=== PATIENT | female | born 1990 | race Caucasian/White ===

== ENCOUNTER 2023-09-20 22:57 | Emergency (ER) | payer BC, SELFPAY ==
[2023-09-20 22:59] VITALS: BP 134/91
[2023-09-20 23:06] VITALS: BMI 27.5
--- NOTE | 2023-09-20 23:15 | ED.GENMED ---
History of Present Illness
General
Chief Complaint: Headache
Source: patient
Exam Limitations: none
Time Seen by Provider: 09/20/23 23:04
Travel History
Have you had any contact with someone who has COVID-19?: No
Do you have any symptoms of coronavirus? Fever > 100 degrees, chills, cough, shortness of breath, sore throat, loss of taste or smell, muscle aches, or headache?: No
History of Present Illness
History of Present Illness:
This is a 33 year old female that comes in with c/o headache. States that she started with a headache this morning and it continued to get worse when she was at work. States that she left work as she was nauseated and diarrhea. States that her
headache is mostly across her forehead and also all over. States that there is also a shooting pain sometimes. States that this is different then her Headaches in the past, this is worse. States that she normally can take Excedrin and lay down and
it goes away. States that she feels like the room is spinning, has had nausea, vomiting and diarrhea and that light and sound bothers her. Denies any fever, chills, chest pain, SOB, abd pain, urinary burning.
Past History
Past History
ED Past Medical History: Asthma and Other (Headaches, Anemia, )
ED Past Surgical History: None
Social History
Tobacco: Non-smoker
Alcohol: Occasional
Personal:
Living: with family
Review of Systems
Review of Systems
All Other Systems: ROS reviewed and negative except as documented in HPI and ROS
Constitutional: Reports no symptoms; Denies fever or chills
EENT: Reports no symptoms
Respiratory: Reports no symptoms; Denies cough or trouble breathing
Cardiac: Reports no symptoms; Denies chest pain
ABD/GI: Reports nausea, vomiting and diarrhea; Denies abdominal pain
: Reports no symptoms; Denies dysuria, frequency or urgency
Musculoskeletal: Reports no symptoms
Skin: Reports no symptoms
Neurological: Reports dizzy and headache
Psychiatric: Reports no symptoms
Phy Exam
General Physical Exam
General Presentation: mild distress
General age: appears stated age
General Skin: warm and dry
General Habitus: normal
General Mental: alert
General Hydration: appears well hydrated
ENT Exam
ENT Exam: TM's normal, pharynx normal and neck supple
Eye Exam
Eye Exam: EOMI
Cardiovascular Exam
Cardiovascular Exam: regular rate/rhythm, no edema, no murmur and normal peripheral pulses
Pulmonary Exam
Pulmonary Exam: lungs clear, no respiratory distress, no rales, chest non tender, no crackles, no rhonchi, no wheezing and no cough
Gastrointestinal Exam
Gastrointestinal Exam: non tender, soft, no organomegaly, no pulsatile mass, non distended and other (Hypoactive bowel sounds)
Musculoskeletal Exam
Musculoskeletal Exam: full ROM and no edema
Skin Exam
Skin Exam: normal color, warm/dry, no rash and no petechia
Psychiatric Exam
Psychiatric Exam: normal mood/affect
Course
Orders/Labs/Results
Orders:
Orders
09/20/23 23:14
0.9% Sodium Chloride 1000 ml [Nss] 1,000 ml IV BOLUS
09/20/23 23:15
Test Result ONCE
09/20/23 23:23
Complete Blood Count/With Diff Urgent
Comprehensive Metabolic Panel Urgent
HCG, Serum Qualitative Screen Urgent
09/20/23 23:53
Dexamethasone Sod Phosphate [Decadron] 20 mg IV NOW STA
Diphenhydramine [Benadryl] 25 mg IV NOW STA
Ketorolac [Toradol] 30 mg IV NOW STA
Prochlorperazine [Compazine] 5 mg IV NOW STA
09/21/23 00:02
Prochlorperazine [Compazine] 10 mg .ROUTE .STK-MED ONE
09/21/23 01:00
CT Head W/o Iv Contrast Urgent
Reason For Exam: HEADACHE, DIZZINESS
Abnormal Lab Results
09/20/23
23:23
Hct 36.0 L %
(37.0-47.0)
MPV 10.6 H fL
(7.4-10.4)
Absolute Lymphs (auto) 0.5 L 10^3/uL
(1.2-3.4)
Neutrophils % 82.6 H %
(42.2-75.2)
Lymphocytes % 8.9 L %
(20.5-51.1)
Sodium 131 L mmol/L
(135-145)
Carbon Dioxide 21 L mmol/L
(22-30)
Glucose 119 H mg/dl
(70-99)
09/20/23 23:23
09/20/23 23:23
Sodium slightly low, glucose nonfasting, HCG negative.
Vital Signs
Initial and Last Documented VS:
Initial Vital Signs
Temp Pulse Resp BP Pulse Ox
98.1 F 99 18 134/91 100
09/20/23 22:59 09/20/23 22:59 09/20/23 22:59 09/20/23 22:59 09/20/23 22:59
Last Documented Vital Signs
Temp Pulse Resp BP Pulse Ox
98.1 F 81 20 116/84 100
09/20/23 22:59 09/21/23 00:52 09/21/23 00:52 09/21/23 00:52 09/21/23 00:52
MDM/Problems Addressed
Differential Diagnosis Includes:
Headache,
MDM/Problems Addressed:
This is a 33 year old female that comes in with c/o headache. States that this is worse then her normal headache pain and started this morning. States that she has nausea, vomiting and diarrhea. States that she felt like the room was spinning.
Will get labs, Give IV fluids and medicated after test back.
Back into see patient. States that she is feeling much better and is smiling. Explained that her CT of the head is normal. Encouraged patient to increase her water intake. Tylenol or Ibuprofen as needed for headache pain. Follow up with the family
doctor. Return with any concerns.
Chronic conditions affecting care:
Headaches
Acute Exacerbation and/or Progression of Chronic Illness:
Headache
*Radiology
Radiology exam reviewed: radiology read reviewed (CT head- No acute hemorrhage, herniation or hydrocephalus. No calvarial fracture. The visualized paranasal sinuses and mastoid air cells are clear. )
*Pulse Oximetry
Patient hypoxic: no
*EKG
Interpreted by ED Provider?: NA
Rate: EKG- N/A
*Concrete Block Molder Interpretation
Rate: Concrete Block Molder- N/A
*Critical Care Note
Total Time (30-74mins, 75-104mins- exclusive of procedures): Not Applicable
ED Attending Note
-
Portions of this chart may have been created with voice recognition software.� Occasional wrong word or��sound alike� substitutions may have occurred due to the inherent limitations of voice recognition software.
Discharge Plan
Departure
Patient Disposition: Home (Routine Discharge)
Date of Disposition: 09/21/23
Time of Disposition: 01:27
Patient with high blood pressure during this ER visit?: No
Condition: Good
Covid-19: Not Applicable
Discharge Problem:
Headache
Instructions: Headache, Adult (DC)
Prescriptions:
No Action
acetaminophen 325 mg Tablet
650 mg PO Q4HPRN PRN (Reason: mild pain) Qty: 30 0RF
ibuprofen 600 mg Tablet
600 mg PO Q4HPRN PRN (Reason: moderate pain/cramps) Qty: 30 0RF
Alysa-D 12 Hour
1 tab PO DAILY
Referrals:
Hansbarger,Robyn A., PA-C [Family Provider] - Follow up in 2-3 days
Activity Restrictions/Additional Instructions:
As discussed, your CT of the head is normal. Your Blood work shows that your Sodium is slightly low. Please try come canned soup or boxed food to help increase your sodium. Please do not drink any more water then 8-8oz glasses as water will
continue to flush out your sodium. You may use Tylenol or Ibuprofen for headache pain. Follow up with the family doctor for recheck. IF YOU HAVE ANY OTHER CONCERNS PLEASE RETURN TO THE EMERGENCY ROOM.
Interventions
Interventions:
*Risk Screen - Suicide Last Done: 09/20/23 22:59
*General Assessment Last Done: 09/20/23 22:59
*Neglect/Abuse Screening Last Done: 09/20/23 22:59
ED- Fall Risk Assessment Last Done: 09/20/23 23:06
*ED COVID-19 Vaccine History Last Done: 09/20/23 23:06
ED- Neurological Assessment Last Done: 09/20/23 23:06
Discharge Date and Time
Print Language: YI
[2023-09-20] MEDS: NSS 1000 IV (23:22)
[2023-09-20 23:33] LABS: % Basophils 1.2 % (0-2); % Immature Granulocytes 0.3 % (0-0.5); % Lymphocytes 8.9 % (20.5-51.1); % Neutrophils 82.6 % (42.2-75.2); Absolute Basophils 0.1 10^3/uL (0-0.2); Absolute Eosinophils 0.1 10^3/uL (0-0.7); Absolute Lymphocytes 0.5 10^3/uL (1.2-3.4); Absolute Monocytes 0.4 10^3/uL (0.1-0.6); Absolute Neutrophils 4.9 10^3/uL (1.4-6.5); Hemoglobin 12.6 g/dL (12.0-16.0); Mean Corpuscular Hgb 29.4 pg (27.0-31.0); Mean Corpuscular Volume 84.1 fL (81.0-99.0); Mean Platelet Volume 10.6 fL (7.4-10.4); Nucleated Red Blood Cells % 0 %; Platelet Count 190 10^3/uL (130-400); Red Blood Cell Count 4.28 10^6/uL (4.20-5.40); Red Cell Dist. Width 14.3 % (11.5-14.5)
[2023-09-20 23:43] LABS: HCG, Serum Qualitative Screen Negative
[2023-09-20 23:47] LABS: ALT (SGPT) 24 U/L (0-35); AST (SGOT) 30 U/L (14-36); Albumin 3.9 g/dl (3.5-5.0); Alkaline Phosphatase 56 U/L (38-126); Blood Urea Nitrogen 14 mg/dl (7-17); Calcium 9.1 mg/dl (8.4-10.2); Carbon Dioxide 21 mmol/L (22-30); Chloride 101 mmol/L (98-107); Estimated Creatinine Clearance 103 ml/min; Glucose 119 mg/dl (70-99); Sodium 131 mmol/L (135-145); Total Bilirubin 1.1 mg/dl (0.2-1.3); Total Protein 6.4 g/dl (6.3-8.2); eGFR > 60.00
[2023-09-21] MEDS: COMPAZINE 5 MG IV (00:04)
[2023-09-21] MEDS: TORADOL 30 MG IV (00:07)
[2023-09-21] MEDS: BENADRYL 25 MG IV (00:09)
[2023-09-21] MEDS: DECADRON 20 MG IV (00:12)
[2023-09-21 00:16] VITALS: BP 102/74
[2023-09-21 00:52] VITALS: BP 116/84
[2023-09-21 01:30] VITALS: BP 113/83
== END 2023-09-21 02:11 | disposition home or self-care (01) ==
LOC: EMR 22:57
PROVIDERS: Clinical Nurse Specialist Family Health; EMERGENCY PHYSICIAN Student in an Organized Health Care Education/Training Program; FAMILY PHYSICIAN Physician Assistant Medical
DX: R51.9 Headache, unspecified (principal); R19.7 Diarrhea, unspecified; R11.2 Nausea with vomiting, unspecified
CPT/HCPCS: 99284; 96374; 96375 ×3; 96361; 70450; 80053; 84703; 85025